=== PATIENT | male | born 1980 | race Caucasian/White ===

== ENCOUNTER 2017-08-30 05:24 | Emergency (ER) | payer OTHER ==
[~2017-08-30] VITALS: Ht 170.1 cm; Wt 141.5 kg
[~2017-08-30 05:24] MED LIST: AMLODIPINE; AMLODIPINE5 MG PO; AMOXICILLIN500 MG PO; ASPIRIN CHILDRE81 MG PO; ATIVAN1 MG PO; DYAZIDE PO; EC NAPROSYN500 MG PO; HCTZ; LISINOPRIL/HCTZ1 TA3 PO; MOTRIN800 MG PO; ZITHROMAX Z PA250 MG PO; ZOFRAN4 MG PO
[2017-08-30] MEDS ORDERED: AVPAK AZITHROM250 M1 PO (05:45)
== END 2017-08-30 05:58 | disposition home or self-care (01) ==
LOC: ED 05:24
DX: M54.6 Pain in thoracic spine (principal); R05 Cough; Z91.013 Allergy to seafood; Z79.82 Long term (current) use of aspirin; Z79.899 Other long term (current) drug therapy

== ENCOUNTER 2017-09-17 05:51 | Emergency (ER) | payer OTHER ==
[~2017-09-17] VITALS: Ht 170.1 cm; Wt 141.5 kg
[~2017-09-17 05:51] MED LIST changes: +AVPAK AZITHROM250 M1 PO
[2017-09-17] MEDS ORDERED: Zofran4 MG SL (06:10)
[2017-09-17 06:31] LABS: BASO % 0.4 % (0.0-1.0); EOS # 0.2 10*3/uL (0.0-0.4); EOS % 2.2 % (1.0-4.0); HEMATOCRIT 50.1 % (42.0-52.0); HEMOGLOBIN 16.3 g/dl (14.0-18.0); LYMPH # 2.4 10*3/uL (1.3-4.4); LYMPH % 33.1 % (27.0-41.0); MEAN CELL VOLUME 87.7 fl (80.0-94.0); MEAN CORPUSCULAR HGB 28.5 pg (27.0-31.0); MEAN CORPUSCULAR HGB CONC 32.5 g/dl (33.0-37.0); MEAN PLATELET VOLUME 10.9 fl (9.6-12.3); MONO # 0.5 10*3/uL (0.1-1.0); MONO % 7.5 % (3.0-9.0); NEUT % 56.4 % (47.0-73.0); PLATELET COUNT AUTOMATED 207 10*3/uL (130-400); RED BLOOD COUNT 5.71 10*6/uL (4.50-5.90); RED CELL DISTRI WIDTH 13.9 % (0-14.5); WHITE BLOOD COUNT 7.2 10*3/uL (4.8-10.8)
[2017-09-17 06:43] LABS: BILIRUBIN NEGATIVE (NEGATIVE); BLOOD TRACE-INTACT (NEGATIVE); CLARITY CLEAR (CLEAR); COLOR YELLOW (YELLOW); GLUCOSE NEGATIVE (NEGATIVE); KETONE NEGATIVE (NEGATIVE); LEUKO ESTERASE NEGATIVE (NEGATIVE); NITRITE NEGATIVE (NEGATIVE); PH 5.5 (5.0-9.0); SPECIFIC GRAVITY 1.025 (1.005-1.030); UROBILINOGEN 0.2 E.U./dl (0.2-1.0)
[2017-09-17 06:53] LABS: ALBUMIN 3.5 gm/dl (3.1-4.5); ALKALINE PHOSPHATASE 51 U/L (45-117); BUN 10 mg/dl (7-24); CHLORIDE 109 mmol/L (98-107); CREATININE 0.74 mg/dL (0.70-1.30); LIPASE 164 U/L (73-393); POTASSIUM 3.5 mmol/L (3.5-5.1); SGOT/AST 24 IU/L (3-35); SGPT/ALT 43 U/L (12-78); SODIUM 142 mmol/L (136-145); TOTAL PROTEIN 6.8 gm/dL (6.4-8.2)
[2017-09-17 06:54] LABS: BACTERIA TRACE; CALCIUM OXALATE CRYSTALS 1+; MUCOUS 1+
[2017-09-17] MEDS ORDERED: ZOFRAN ODT4 MG SL (07:54)
== END 2017-09-17 08:00 | disposition home or self-care (01) ==
LOC: ED 05:51
PROVIDERS: Student in an Organized Health Care Education/Training Program
DX: K29.70 Gastritis, unspecified, without bleeding (principal); Z91.013 Allergy to seafood; Z79.82 Long term (current) use of aspirin; Z79.899 Other long term (current) drug therapy